=== PATIENT | female | born 1960 | race Caucasian/White ===

== ENCOUNTER 2022-07-16 14:14 | Observation (INO) ==
[2022-07-16] MEDS ORDERED: ONDANSETRON INJ 2 MG/ML 2 ML VIAL IV STA (14:41)
[2022-07-16] MEDS ORDERED: SODIUM CHLORIDE 0.9% 1000ML 1,000 ML IV ONE ×2 (14:41→16:13)
[2022-07-16] MEDS ORDERED: ACETAMINOPHEN 1,000 MG/100 ML VIAL IV STA (14:43)
[2022-07-16] MEDS ORDERED: OPTIRAY 320 500ml IV ONE (14:49)
--- NOTE | 2022-07-16 14:49 | Emergency Department Note ---
Impression & Plan Acute confusion, Leukocytosis, Amnesia, Vomiting and diarrhea ED Provider Note NAME: JOAQUIN PINTO AGE: 62 SEX: F : 1960 ARRIVES VIA: Walk-In INFORMANT: [Patient][] ED PROVIDER(S): [Mando Blackmon MD] Patient first seen by me at 1655 CHIEF COMPLAINT: Confusion HISTORY OF PRESENT ILLNESS: The patient is a 62-year-old female who woke up this morning at around 8 AM, 6.5 hours ago. She had several bouts of vomiting and diarrhea. She went back to bed but the exact time is unclear. At 1155, around noon time, 2 hours and 30 minutes ago, the patient awoke and was confused. She kept asking the same questions over and over again, she did not know what had happened this morning, she did not have any speech slur, no extremity weakness, no difficulty with gait. Her memory did not really seem to be improving and she was brought for evaluation by her . Patient complains of a mild headache. No abdominal pain, no chest pain. She does admit that her memory is an issue today. PMHx/PSHx: See Below SOCIAL HISTORY: See Below. PHYSICAL EXAM: GENERAL: Patient is in no acute distress. HEENT: No acute trauma, normocephalic atraumatic, mucous membranes moist, no nasal congestion. Pupils equal and reactive to light. NECK: No stridor, no adenopathy, no meningismus, trachea is midline. LUNGS: Clear to auscultation bilaterally, no wheeze, no rhonchi, breath sounds equal. HEART: Without murmurs gallops or rubs, regular rate and rhythm. ABDOMEN: Soft, nontender, bowel sounds positive, no peritonitis. EXTREMITIES: No cyanosis or edema, full range of motion of all the joints without pain or difficulty, no signs for acute trauma. NEUROLOGIC: The patient knows her name and that this is Lino Quick. She did not know the year or day, but, she did know the month. There was no facial droop or extremity drift, no cerebellar dysfunction. No speech slur. SKIN: No rash, no jaundice, no diaphoresis. DIFFERENTIAL DIAGNOSIS: Stroke, transient global amnesia, dehydration, electrolyte imbalance, UTI, viral illness, among others. EMERGENCY DEPARTMENT COURSE/PROCEDURES: Prior/Outside records reviewed: None. ECG per my interpretation: Indication was confusion. The ECG shows a normal sinus rhythm with a rate of 83. There is no ST elevation, no PVCs. The QTc is 425. Continuous Cardiac Monitoring per my interpretation: An order was placed for continuous cardiac monitoring. The monitor shows a rate of 93 with normal sinus rhythm. Critical Care Note: I have personally spent 41 minutes of critical care time in the direct management of this patient. This includes bedside care, interpretation of diagnostic studies, and testing, discussion with consultants, patient, and family members, and other required patient management activities. This 41 minutes is in excess of all separately billable procedures. MEDICAL DECISION MAKING: There is a mild leukocytosis which would be consistent with infection or the stress of her current presentation. The hemoglobin was high at 17 consistent possibly with some dehydration. There is a normal platelet count. No coagulopathy. No renal failure or significant electrolyte abnormality. Lactic acid level is not elevated making sepsis less likely. No concerning liver enzyme elevation. ECG shows a normal sinus rhythm, no ischemia. Cardiac enzyme testing x1 is not consistent with acute cardiac injury. Urinalysis shows some dehydration, no infection. Urine tox was negative. COVID, influenza and RSV test were negative. Brain CT showed no acute bleed or mass effect. CT angio of the head and neck were unremarkable for stenosis or clot. Chest x-ray per my review does not show mediastinal widening, pneumonia or pneumothorax. On exam, the patient did have some amnesia and some difficulty with memory. No focal motor findings, no speech slur. The patient received IV saline, 2 L. She received IV Zofran for nausea, IV Tylenol for her headache. Given her presentation, a stroke alert was called. Patient was seen by the [place] stroke neurologist, TNK was not felt indicated given the exam findings and complaints. The patient does seem to be improved compared to earlier, her feels that she seems less confused. Admission/further work-up is warranted. I talked to the patient, I talked to case management, the on-call hospitalist was consulted. Transient global amnesia is a consideration for her presentation, subtle stroke not seen on CT is a consideration. Hospitalization is indicated. DISPOSITION: Patient presentation and findings warrant a hospital stay and further work-up. Past Med/Surg History Medical History Depression Dyslipidemia Hypertension Mild mitral regurgitation Echo 05/27/19 Mild tricuspid regurgitation Echo 05/27/19 Overweight Prediabetes Surgical History S/P laparoscopic procedure Family History Family/Other Breast cancer cousin Father Diabetes Mother Diabetes Hypertension Brother Diabetes Brother Diabetes Sister Breast cancer Prediabetes Denies family history of Ovarian cancer Prostate cancer Myocardial infarction Colorectal cancer Social History Smoking Status: Never smoker Second Hand Exposure: No; Hx Alcohol Use: No Hx Substance Use: No Preferred Language: [place] Communication Ability: Effective Visual Impairment: No Limitations Hearing Ability: Normal Hand Braille Transcriber Required: No Beliefs That Will Affect Care: None marital status: Current Living Situation: Spouse current occupational status: employed 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 How many Children do You have: 3 Feels Safe at Home: Yes Childhood Exposure to Second-Hand Smoke: No Diet Comment: regular caffeine: Yes (Tea 1 cup per day.) during the past year weight has: remained stable Dental Care, Regularly: Yes Physical Activity Frequency: Daily Seatbelt Use: always Sunscreen Use: Yes (sometimes) Allergies Allergies Allergy/AdvReac Type Severity Reaction Status Date / Time Penicillins Allergy Unknown CHILDHOOD Verified 07/16/22 15:04 ALLERGY--CAN'T REMEMBER Home Meds Home Medications Medication Instructions Recorded Confirmed chromium aa hjexvdb-cvuvlbtwf-olrf 1 tab PO DAILY 05/24/19 07/16/22 200 mcg-5 mg-25 mg tablet glucosamine sulf dipot 1 cap PO DAILY 05/24/19 07/16/22 chlr,msm,chond 550 mg-C 30 mg-alfonso 1 mg capsule (Glucosamine Chondroitin) lactobacillus combination no.4 3 0 mmu cells PO DAILY 05/24/19 07/16/22 billion cell capsule (Probiotic) multivitamin 1 tab PO DAILY 05/24/19 07/16/22 omega 7-llj-duy-fish oil 1,000 mg 1 cap PO DAILY 05/24/19 07/16/22 (120 mg-180 mg) capsule (Fish Oil) cholecalciferol (vitamin D3) 10 1,000 units PO DAILY 05/26/19 07/16/22 mcg (400 unit) tablet (Vitamin D3) potassium gluconate 595 mg (99 mg) 595 mg PO DAILY 05/26/19 07/16/22 tablet psyllium husk 3.4 gram/5.4 gram 1 tbsp PO DAILY 05/05/20 07/16/22 oral powder (Metamucil) calcium carbonate 600 mg-vitamin 1 cap PO DAILY 07/16/22 07/16/22 D3 10 mcg (400 unit) capsule coQ10 (ubiquinol) 200 mg capsule 200 mg PO DAILY 07/16/22 07/16/22 Previous Rx's Medication Instructions Recorded sertraline 50 mg tablet 50 mg PO DAILY #90 tabs 08/29/21 rosuvastatin 10 mg tablet 10 mg PO DAILY #90 tabs 12/14/21 lisinopril 10 mg tablet 10 mg PO DAILY #90 tabs 06/13/22 metformin 500 mg tablet,extended 500 mg PO DAILY #90 tabs 07/16/22 release 24 hr Results & Data (ED) Vital Signs Vital Signs - 24 hr 07/16/22 14:21 07/16/22 14:40 07/16/22 14:40 Temperature 36.2 C L Temperature Source Temporal Artery Scan Pulse Rate 93 H 82 84 Pulse Rate from SpO2 Sensor Pulse Rhythm Regular Pulse Strength Normal Respiratory Rate 20 16 Respiratory Effort / Characteristics Non-Labored Spontaneous Respiratory Depth Normal Respiratory Pattern Regular Blood Pressure 175/84 H Blood Pressure Mean 114 Blood Pressure Position Sitting Pulse Oximetry 97 Oxygen Delivery Method Room Air Sepsis Recent Fever Within 48 Hours No Sepsis New/Unexplained Change in Mental Status No Sepsis Action Taken by Nursing No Action Required 07/16/22 14:41 07/16/22 14:41 07/16/22 14:54 Temperature Temperature Source Pulse Rate 80 Pulse Rate from SpO2 Sensor 81 Pulse Rhythm Pulse Strength Respiratory Rate 13 Respiratory Effort / Characteristics Respiratory Depth Respiratory Pattern Blood Pressure 164/83 H 156/76 H Blood Pressure Mean 110 102 Blood Pressure Position Pulse Oximetry 95 Oxygen Delivery Method Sepsis Recent Fever Within 48 Hours Sepsis New/Unexplained Change in Mental Status Sepsis Action Taken by Nursing 07/16/22 14:54 07/16/22 15:00 07/16/22 15:00 Temperature Temperature Source Pulse Rate 95 H 87 Pulse Rate from SpO2 Sensor 95 H 87 Pulse Rhythm Pulse Strength Respiratory Rate 16 14 Respiratory Effort / Characteristics Respiratory Depth Respiratory Pattern Blood Pressure 157/80 H Blood Pressure Mean 105 Blood Pressure Position Pulse Oximetry 96 97 Oxygen Delivery Method Sepsis Recent Fever Within 48 Hours Sepsis New/Unexplained Change in Mental Status Sepsis Action Taken by Nursing 07/16/22 15:30 07/16/22 15:30 07/16/22 16:00 Temperature Temperature Source Pulse Rate 78 Pulse Rate from SpO2 Sensor 78 Pulse Rhythm Pulse Strength Respiratory Rate 16 Respiratory Effort / Characteristics Respiratory Depth Respiratory Pattern Blood Pressure 151/72 H 131/81 Blood Pressure Mean 98 97 Blood Pressure Position Pulse Oximetry 97 Oxygen Delivery Method Sepsis Recent Fever Within 48 Hours Sepsis New/Unexplained Change in Mental Status Sepsis Action Taken by Nursing 07/16/22 16:00 Temperature Temperature Source Pulse Rate 77 Pulse Rate from SpO2 Sensor 77 Pulse Rhythm Pulse Strength Respiratory Rate 18 Respiratory Effort / Characteristics Respiratory Depth Respiratory Pattern Blood Pressure Blood Pressure Mean Blood Pressure Position Pulse Oximetry 97 Oxygen Delivery Method Sepsis Recent Fever Within 48 Hours Sepsis New/Unexplained Change in Mental Status Sepsis Action Taken by Long-Term Medications Current Medication List: was personally reviewed by me Laboratory Data Attestation: I reviewed the patient's lab results. 07/16/22 14:38 07/16/22 14:38 Lab Results 07/16/22 07/16/22 07/16/22 Range/Units 14:26 14:38 14:38 WBC 14.89 H (4.8-10.8) K/ul RBC 5.60 H (4.20-5.40) M/uL Hgb 17.2 H (12.0-16.0) g/dl Hct 51.6 H (37.0-47.0) % MCV 92.1 (80.0-100.0) fL MCH 30.7 (25.0-34.0) pg MCHC 33.3 (32.0-36.0) g/dL RDW Std Deviation 44.9 (36.4-46.3) fL RDW Coeff of Rory 13.2 (11.5-14.5) % Plt Count 232 (130-400) K/uL MPV 11.4 (9.4-12.4) fL Immature Gran % (Auto) 0.5 % Neut % (Auto) 92.8 % Lymph % (Auto) 3.3 % [place]pine % (Auto) 3.0 % Eos % (Auto) 0.1 % Baso % (Auto) 0.3 % Neut # (Auto) 13.84 H (1.40-6.50) K/uL Lymph # (Auto) 0.49 L (1.2-3.4) K/uL Alpine # (Auto) 0.44 (0.11-0.59) K/uL Eos # (Auto) 0.01 (0-0.50) K/uL Baso # (Auto) 0.04 (0-0.2) K/uL Immature Gran # (Auto) 0.07 (0.01-0.20) K/uL Toxic Vacuolation 1+ PT 10.5 (9.0-12.0) Seconds INR 1.0 (0.9-1.1) APTT 22.8 (21.0-31.0) Seconds PTT Ratio 0.8 Sodium (136-145) mmol/L Potassium (3.5-5.1) mmol/L Chloride (98-107) mmol/L Carbon Dioxide (21-32) mmol/L Anion Gap (3-11) BUN (6-23) mg/dl Creatinine (0.6-1.2) mg/dl Est Cr Clr Drug Dosing ml/min Est GFR ( Amer) ml/min Est GFR (Non-Af Amer) ml/min BUN/Creatinine Ratio (10-20) Glucose (70-99(Fasting)) mg/dl POC Glucose 134 H (70-99) mg/dl Lactate (0.4-2.0) mmol/L Calcium (8.5-10.1) mg/dl Magnesium (1.7-2.4) mg/dl Total Bilirubin (0.2-1.0) mg/dl AST (13-39) U/L ALT (7-52) U/L Alkaline Phosphatase (34-104) U/L Troponin I High Sens (0-14) pg/ml Total Protein (6.0-8.3) gm/dl Albumin (3.4-5.0) gm/dl Globulin (2.5-4.0) gm/dl Albumin/Globulin Ratio (0.9-2) Urine Color Urine Appearance (Clear) Urine pH (4.5-7.5) Ur Specific [place] (1.000-1.030) Urine Protein (Negative) Urine Glucose (UA) (Negative) Urine Ketones (Negative) Urine Blood (Negative) Urine Nitrite (Negative) Urine Bilirubin (Negative) Urine Urobilinogen (Negative) Ur Leukocyte Esterase (Negative) Urine Opiates Screen (Neg) Ur Methadone, Qual (Neg) Urine Barbiturates (Neg) Ur Phencyclidine (PCP) (Neg) U Amphetamin/Meth Scrn (Neg) MDMA (Ecstasy) Screen (Neg) U Benzodiazepines Scrn (Neg) Ur Cocaine Metabolite (Neg) U Marijuana (THC) Screen (Neg) SARS-CoV-2 (PCR) (Negative) Influenza Type A (PCR) (Neg) Influenza Type B (PCR) (Neg) RSV (RT-PCR) (Neg) 07/16/22 07/16/22 07/16/22 Range/Units 14:38 15:42 15:50 WBC (4.8-10.8) K/ul RBC (4.20-5.40) M/uL Hgb (12.0-16.0) g/dl Hct (37.0-47.0) % MCV (80.0-100.0) fL MCH (25.0-34.0) pg MCHC (32.0-36.0) g/dL RDW Std Deviation (36.4-46.3) fL RDW Coeff of Rory (11.5-14.5) % Plt Count (130-400) K/uL MPV (9.4-12.4) fL Immature Gran % (Auto) % Neut % (Auto) % Lymph % (Auto) % Alpine % (Auto) % Eos % (Auto) % Baso % (Auto) % Neut # (Auto) (1.40-6.50) K/uL Lymph # (Auto) (1.2-3.4) K/uL Alpine # (Auto) (0.11-0.59) K/uL Eos # (Auto) (0-0.50) K/uL Baso # (Auto) (0-0.2) K/uL Immature Gran # (Auto) (0.01-0.20) K/uL Toxic Vacuolation PT (9.0-12.0) Seconds INR (0.9-1.1) APTT (21.0-31.0) Seconds PTT Ratio Sodium 142 (136-145) mmol/L Potassium 4.1 (3.5-5.1) mmol/L Chloride 108 H (98-107) mmol/L Carbon Dioxide 26 (21-32) mmol/L Anion Gap 8 (3-11) BUN 21 (6-23) mg/dl Creatinine 0.86 (0.6-1.2) mg/dl Est Cr Clr Drug Dosing 69.0 ml/min Est GFR ( Amer) 83.3 ml/min Est GFR (Non-Af Amer) 71.9 ml/min BUN/Creatinine Ratio 24.4 H (10-20) Glucose 143 H (70-99(Fasting)) mg/dl POC Glucose (70-99) mg/dl Lactate (0.4-2.0) mmol/L Calcium 9.6 (8.5-10.1) mg/dl Magnesium 1.8 (1.7-2.4) mg/dl Total Bilirubin 1.1 H (0.2-1.0) mg/dl AST 22 (13-39) U/L ALT 31 (7-52) U/L Alkaline Phosphatase 87 (34-104) U/L Troponin I High Sens 6.2 (0-14) pg/ml Total Protein 8.0 (6.0-8.3) gm/dl Albumin 4.9 (3.4-5.0) gm/dl Globulin 3.1 (2.5-4.0) gm/dl Albumin/Globulin Ratio 1.6 (0.9-2) Urine Color Yellow Urine Appearance Clear (Clear) Urine pH 5.0 (4.5-7.5) Ur Specific [place] > 1.045 H (1.000-1.030) Urine Protein Negative (Negative) Urine Glucose (UA) Negative (Negative) Urine Ketones Trace H (Negative) Urine Blood Negative (Negative) Urine Nitrite Negative (Negative) Urine Bilirubin Negative (Negative) Urine Urobilinogen Negative (Negative) Ur Leukocyte Esterase Negative (Negative) Urine Opiates Screen (Neg) Ur Methadone, Qual (Neg) Urine Barbiturates (Neg) Ur Phencyclidine (PCP) (Neg) U Amphetamin/Meth Scrn (Neg) MDMA (Ecstasy) Screen (Neg) U Benzodiazepines Scrn (Neg) Ur Cocaine Metabolite (Neg) U Marijuana (THC) Screen (Neg) SARS-CoV-2 (PCR) NEGATIVE (Negative) Influenza Type A (PCR) Negative (Neg) Influenza Type B (PCR) Negative (Neg) RSV (RT-PCR) Negative (Neg) 07/16/22 07/16/22 Range/Units 15:50 16:49 WBC (4.8-10.8) K/ul RBC (4.20-5.40) M/uL Hgb (12.0-16.0) g/dl Hct (37.0-47.0) % MCV (80.0-100.0) fL MCH (25.0-34.0) pg MCHC (32.0-36.0) g/dL RDW Std Deviation (36.4-46.3) fL RDW Coeff of Rory (11.5-14.5) % Plt Count (130-400) K/uL MPV (9.4-12.4) fL Immature Gran % (Auto) % Neut % (Auto) % Lymph % (Auto) % [place] % (Auto) % Eos % (Auto) % Baso % (Auto) % Neut # (Auto) (1.40-6.50) K/uL Lymph # (Auto) (1.2-3.4) K/uL [place] # (Auto) (0.11-0.59) K/uL Eos # (Auto) (0-0.50) K/uL Baso # (Auto) (0-0.2) K/uL Immature Gran # (Auto) (0.01-0.20) K/uL Toxic Vacuolation PT (9.0-12.0) Seconds INR (0.9-1.1) APTT (21.0-31.0) Seconds PTT Ratio Sodium (136-145) mmol/L Potassium (3.5-5.1) mmol/L Chloride (98-107) mmol/L Carbon Dioxide (21-32) mmol/L Anion Gap (3-11) BUN (6-23) mg/dl Creatinine (0.6-1.2) mg/dl Est Cr Clr Drug Dosing ml/min Est GFR ( Amer) ml/min Est GFR (Non-Af Amer) ml/min BUN/Creatinine Ratio (10-20) Glucose (70-99(Fasting)) mg/dl POC Glucose (70-99) mg/dl Lactate 1.6 (0.4-2.0) mmol/L Calcium (8.5-10.1) mg/dl Magnesium (1.7-2.4) mg/dl Total Bilirubin (0.2-1.0) mg/dl AST (13-39) U/L ALT (7-52) U/L Alkaline Phosphatase (34-104) U/L Troponin I High Sens (0-14) pg/ml Total Protein (6.0-8.3) gm/dl Albumin (3.4-5.0) gm/dl Globulin (2.5-4.0) gm/dl Albumin/Globulin Ratio (0.9-2) Urine Color Urine Appearance (Clear) Urine pH (4.5-7.5) Ur Specific [place] (1.000-1.030) Urine Protein (Negative) Urine Glucose (UA) (Negative) Urine Ketones (Negative) Urine Blood (Negative) Urine Nitrite (Negative) Urine Bilirubin (Negative) Urine Urobilinogen (Negative) Ur Leukocyte Esterase (Negative) Urine Opiates Screen Neg (Neg) Ur Methadone, Qual Neg (Neg) Urine Barbiturates Neg (Neg) Ur Phencyclidine (PCP) Neg (Neg) U Amphetamin/Meth Scrn Neg (Neg) MDMA (Ecstasy) Screen Neg (Neg) U Benzodiazepines Scrn Neg (Neg) Ur Cocaine Metabolite Neg (Neg) U Marijuana (THC) Screen Neg (Neg) SARS-CoV-2 (PCR) (Negative) Influenza Type A (PCR) (Neg) Influenza Type B (PCR) (Neg) RSV (RT-PCR) (Neg) Administered Medications Sodium Chloride (Nss 1000ml) 1,000 mls @ 999 mls/hr IV .Q1H1M ONE Stop: 07/16/22 17:13 Last Admin: 07/16/22 16:44 Dose: 999 mls/hr Documented By: VIOLET Discontinued Medications Sodium Chloride (Nss 1000ml) 1,000 mls @ 999 mls/hr IV .Q1H1M ONE Stop: 07/16/22 15:41 Last Infusion: 07/16/22 17:03 Dose: 0 mls/hr Documented By: Admin: 07/16/22 14:54 Dose: 999 mls/hr Documented By: VIOLET Acetaminophen (Ofirmev) 1,000 mg in 100 mls @ 400 mls/hr IV NOW STA Stop: 07/16/22 14:57 Last Infusion: 07/16/22 15:58 Dose: 0 mls/hr Documented By: Admin: 07/16/22 14:53 Dose: 400 mls/hr Documented By: VIOLET Ioversol (Optiray 320 500ml) 108 ml IV ONCE ONE Stop: 07/16/22 14:50 Last Admin: 07/16/22 14:49 Dose: 108 ml Documented By: DENILSON Ondansetron HCl (Ondansetron Inj 2 Mg/Ml 2 Ml Vial) 4 mg IV NOW STA Stop: 07/16/22 14:42 Last Admin: 07/16/22 14:53 Dose: 4 mg Documented By: VIOLET Imaging Data Radiologist's Impression: Head CT 07/16/22 14:[address] OF THE BRAIN; CT ANGIOGRAM OF THE BRAIN; CT ANGIOGRAM OF THE NECK CLINICAL HISTORY: Strokelike symptoms. Neurological deficit. COMPARISON STUDY: CT of the brain dated 05/24/2019. TECHNIQUE: Unenhanced axial CT scan of the brain is performed. Subsequently, following the IV administration of 108 of Optiray 320, CT angiogram of the head and neck was performed from the aortic arch to the vertex. Images are reviewed in the axial, sagittal, and coronal planes. 3-D MIPS images are created and assessed. IV contrast was administered without complication. All measurements were calculated based on NASCET criteria. A dose lowering technique was utilized adhering to the principles of ALARA. CT DOSE: 1045.39 mGy.cm FINDINGS: Brain parenchyma: The brain parenchyma is normal in appearance. There is no hemorrhage, mass effect, or evidence of acute territorial ischemia by CT criteria. There is no evidence of enhancing mass lesion on the angiogram phase images. The ventricles, sulci, and cisterns are normal in configuration. Oliveros- white matter differentiation is preserved. No extra-axial fluid collection is seen. Thoracic aorta: Visualized portions of the thoracic aorta are normal in caliber. The aortic arch demonstrates bovine variant anatomy. Right carotid arterial system: The right common carotid artery is widely patent, as are the right internal and external carotid arteries. Left carotid arterial system: The left common carotid artery is widely patent, as are the left internal and external carotid arteries. Vertebral arteries: The vertebral arteries are widely patent bilaterally and codominant Subclavian arteries: Widely patent bilaterally. Intracranial vasculature: There is atherosclerotic calcification of the cavernous carotid arteries. The internal carotid arteries are patent at the skull base, as are the anterior and middle cerebral arteries bilaterally. The vertebrobasilar system and posterior cerebral arteries are widely patent. The vertebral arteries are codominant.. There is no aneurysm, high-grade stenosis, or focal vessel cut off seen throughout the intracranial circulation. Jugular veins: Patent bilaterally. Dural sinuses: Patent. Lung apices: Partially visualized upper lobe lung parenchyma appears clear. Soft tissues: The visualized pharyngeal soft tissues are normal in appearance noting angiographic phase technique. The oropharyngeal airway appears widely patent. A 1.6 cm enhancing nodule is seen in the left lobe of the thyroid. The salivary glands are normal in appearance. No cervical lymphadenopathy is seen. Skeletal structures: The skeletal structures are osteopenic. The calvarium appears intact. The cervical spine is maintained noting multilevel spondylosis. No lytic or blastic lesion is seen. Orbits: The bony orbits are intact. Orbital contents are normal as visualized. Sinuses and mastoids: The paranasal sinuses are clear. The mastoid air cells are well pneumatized. IMPRESSION: 1. There is no hemorrhage, mass effect, or evidence of acute territorial ischemia by CT criteria. 2. Unremarkable CT angiogram of the brain. 3. Unremarkable CT angiogram of the neck. 4. Left lobe thyroid nodule. Nonemergent thyroid ultrasound is recommended in follow-up. ACT 112: Negative or not required by law. Electronically signed by: Mando Braxton M.D. 07/16/2022 3:08 PM Head CTA 07/16/22 14:[address] OF THE BRAIN; CT ANGIOGRAM OF THE BRAIN; CT ANGIOGRAM OF THE NECK CLINICAL HISTORY: Strokelike symptoms. Neurological deficit. COMPARISON STUDY: CT of the brain dated 05/24/2019. TECHNIQUE: Unenhanced axial CT scan of the brain is performed. Subsequently, following the IV administration of 108 of Optiray 320, CT angiogram of the head and neck was performed from the aortic arch to the vertex. Images are reviewed in the axial, sagittal, and coronal planes. 3-D MIPS images are created and assessed. IV contrast was administered without complication. All measurements were calculated based on NASCET criteria. A dose lowering technique was utilized adhering to the principles of ALARA. CT DOSE: 1045.39 mGy.cm FINDINGS: Brain parenchyma: The brain parenchyma is normal in appearance. There is no hemorrhage, mass effect, or evidence of acute territorial ischemia by CT criteria. There is no evidence of enhancing mass lesion on the angiogram phase images. The ventricles, sulci, and cisterns are normal in configuration. Oliveros- white matter differentiation is preserved. No extra-axial fluid collection is seen. Thoracic aorta: Visualized portions of the thoracic aorta are normal in caliber. The aortic arch demonstrates bovine variant anatomy. Right carotid arterial system: The right common carotid artery is widely patent, as are the right internal and external carotid arteries. Left carotid arterial system: The left common carotid artery is widely patent, as are the left internal and external carotid arteries. Vertebral arteries: The vertebral arteries are widely patent bilaterally and codominant Subclavian arteries: Widely patent bilaterally. Intracranial vasculature: There is atherosclerotic calcification of the cavernous carotid arteries. The internal carotid arteries are patent at the [facility] base, as are the anterior and middle cerebral arteries bilaterally. The vertebrobasilar system and posterior cerebral arteries are widely patent. The vertebral arteries are codominant.. There is no aneurysm, high-grade stenosis, or focal vessel cut off seen throughout the intracranial circulation. Jugular veins: Patent bilaterally. Dural sinuses: Patent. Lung apices: Partially visualized upper lobe lung parenchyma appears clear. Soft tissues: The visualized pharyngeal soft tissues are normal in appearance noting angiographic phase technique. The oropharyngeal airway appears widely patent. A 1.6 cm enhancing nodule is seen in the left lobe of the thyroid. The salivary glands are normal in appearance. No cervical lymphadenopathy is seen. Skeletal structures: The skeletal structures are osteopenic. The calvarium appears intact. The cervical spine is maintained noting multilevel spondylosis. No lytic or blastic lesion is seen. Orbits: The bony orbits are intact. Orbital contents are normal as visualized. Sinuses and mastoids: The paranasal sinuses are clear. The mastoid air cells are well pneumatized. IMPRESSION: 1. There is no hemorrhage, mass effect, or evidence of acute territorial ischemia by CT criteria. 2. Unremarkable CT angiogram of the brain. 3. Unremarkable CT angiogram of the neck. 4. Left lobe thyroid nodule. Nonemergent thyroid ultrasound is recommended in follow-up. ACT 112: Negative or not required by law. Electronically signed by: Mando Braxton M.D. 07/16/2022 3:08 PM Neck CTA 07/16/22 14:[address] OF THE BRAIN; CT ANGIOGRAM OF THE BRAIN; CT ANGIOGRAM OF THE NECK CLINICAL HISTORY: Strokelike symptoms. Neurological deficit. COMPARISON STUDY: CT of the brain dated 05/24/2019. TECHNIQUE: Unenhanced axial CT scan of the brain is performed. Subsequently, following the IV administration of 108 of Optiray 320, CT angiogram of the head and neck was performed from the aortic arch to the vertex. Images are reviewed in the axial, sagittal, and coronal planes. 3-D MIPS images are created and assessed. IV contrast was administered without complication. All measurements were calculated based on NASCET criteria. A dose lowering technique was utilized adhering to the principles of ALARA. CT DOSE: 1045.39 mGy.cm FINDINGS: Brain parenchyma: The brain parenchyma is normal in appearance. There is no h emorrhage, mass effect, or evidence of acute territorial ischemia by CT criteria. There is no evidence of enhancing mass lesion on the angiogram phase images. The ventricles, sulci, and cisterns are normal in configuration. Oliveros- white matter differentiation is preserved. No extra-axial fluid collection is seen. Thoracic aorta: Visualized portions of the thoracic aorta are normal in caliber. The aortic arch demonstrates bovine variant anatomy. Right carotid arterial system: The right common carotid artery is widely patent, as are the right internal and external carotid arteries. Left carotid arterial system: The left common carotid artery is widely patent, as are the left internal and external carotid arteries. Vertebral arteries: The vertebral arteries are widely patent bilaterally and codominant Subclavian arteries: Widely patent bilaterally. Intracranial vasculature: There is atherosclerotic calcification of the cavernous carotid arteries. The internal carotid arteries are patent at the skull base, as are the anterior and middle cerebral arteries bilaterally. The vertebrobasilar system and posterior cerebral arteries are widely patent. The vertebral arteries are codominant.. There is no aneurysm, high-grade stenosis, or focal vessel cut off seen throughout the intracranial circulation. Jugular veins: Patent bilaterally. Dural sinuses: Patent. Lung apices: Partially visualized upper lobe lung parenchyma appears clear. Soft tissues: The visualized pharyngeal soft tissues are normal in appearance noting angiographic phase technique. The oropharyngeal airway appears widely patent. A 1.6 cm enhancing nodule is seen in the left lobe of the thyroid. The salivary glands are normal in appearance. No cervical lymphadenopathy is seen. Skeletal structures: The skeletal structures are osteopenic. The calvarium appears intact. The cervical spine is maintained noting multilevel spondylosis. No lytic or blastic lesion is seen. Orbits: The bony orbits are intact. Orbital contents are normal as visualized. Sinuses and mastoids: The paranasal sinuses are clear. The mastoid air cells are well pneumatized. IMPRESSION: 1. There is no hemorrhage, mass effect, or evidence of acute territorial ischemia by CT criteria. 2. Unremarkable CT angiogram of the brain. 3. Unremarkable CT angiogram of the neck. 4. Left lobe thyroid nodule. Nonemergent thyroid ultrasound is recommended in follow-up. ACT 112: Negative or not required by law. Electronically signed by: Mando Braxton M.D. 07/16/2022 3:08 PM Chest X-Ray 07/16/22 16:18 XR chest 1V portable CLINICAL HISTORY: confusion ?PNA COMPARISON STUDY: Chest radiograph May 24, 2019. FINDINGS: Lung volumes are normal. Lungs are clear. There is no pneumothorax or pleural effusion. Cardiac size is normal. Mediastinal contours are normal. There is no evidence for pulmonary edema. IMPRESSION: No acute cardiopulmonary findings. ACT 112: Negative or not required by law. Electronically signed by: Matt Hargrove M.D. 07/16/2022 4:38 PM Discharge Plan Visit Data Chief Complaint: Confusion Stated Complaint: VOMITING,DIARRHEA,CONFUSION,HEADACHE ED Provider: Mando Blackmon Discharge Problem: Acute confusion, Leukocytosis, Amnesia, Vomiting and diarrhea Patient Disposition: Admitted As Inpatient Condition: Fair Forms Stand Alone Forms: My [facility] Prescriptions Prescriptions: No Action rosuvastatin 10 mg tablet 10 mg PO DAILY Qty: 90 3RF lisinopril 10 mg tablet 10 mg PO DAILY Qty: 90 1RF metformin 500 mg tablet extended release 24 hr 500 mg PO DAILY Qty: 90 1RF sertraline 50 mg tablet 50 mg PO DAILY Qty: 90 3RF Metamucil 3.4 gram/5.4 gram powder 1 tbsp PO DAILY Rx Instructions: mix into at least 8 oz of water or juice before administering multivitamin Tablet 1 tab PO DAILY omega 6-yev-qzf-fish oil [Fish Oil] 1,000 mg (120 mg-180 mg) Capsule 1 cap PO DAILY Patient Comments: unknown strength (05/24/19) chromium aa eey-jedszgiwy-azsk 200-5-25 mcg-mg-mg Tablet 1 tab PO DAILY Patient Comments: unknown strength (05/24/19) Probiotic 3 billion cell Capsule 0 mmu cells PO DAILY Patient Comments: unknown strength (05/24/19) Glucosamine Chondroitin 550-30-1 mg Capsule 1 cap PO DAILY Patient Comments: unknown strength (05/24/19) potassium gluconate 595 mg (99 mg) tablet 595 mg PO DAILY Patient Comments: unknown strength (05/24/19) cholecalciferol (vitamin D3) [Vitamin D3] 10 mcg (400 unit) tablet 1,000 units PO DAILY Patient Comments: unknown strength (05/24/19) calcium carbonate-vitamin D3 [Calcium 600 with Vitamin D3] 600 mg-10 mcg (400 unit) Capsule 1 cap PO DAILY coQ10 (ubiquinol) 200 mg Capsule 200 mg PO DAILY Referrals Referrals: Anum Rees DO [Primary Care Provider] -
[2022-07-16 14:56] LABS: Hematocrit (blood only) 51.6 % (37.0-47.0); Hemoglobin 17.2 g/dl (12.0-16.0); Mean Corpuscular Hemoglobin 30.7 pg (25.0-34.0); Mean Corpuscular Hgb Conc 33.3 g/dL (32.0-36.0); Mean Corpuscular Volume 92.1 fL (80.0-100.0); Mean Platelet Volume 11.4 fL (9.4-12.4); Platelet Count 232 K/uL (130-400); RDW Coefficient of Variation 13.2 % (11.5-14.5); RDW Standard Deviation 44.9 fL (36.4-46.3); White Blood Count 14.89 K/ul (4.8-10.8)
[2022-07-16 15:06] LABS: Partial Thromboplastin Ratio 0.8; Partial Thromboplastin Time 22.8 Seconds (21.0-31.0); Prothrombin Time 10.5 Seconds (9.0-12.0)
--- NOTE | 2022-07-16 15:10 | CT Scan Report ---
UNENHANCED CT OF THE BRAIN; CT ANGIOGRAM OF THE BRAIN; CT ANGIOGRAM OF THE NECK CLINICAL HISTORY: Strokelike symptoms. Neurological deficit. COMPARISON STUDY: CT of the brain dated 05/24/2019. TECHNIQUE: Unenhanced axial CT scan of the brain is performed. Subsequently, following the IV adminis tration of 108 of Optiray 320, CT angiogram of the head and neck was performed from the aortic arch t o the vertex. Images are reviewed in the axial, sagittal, and coronal planes. 3-D MIPS images are cre ated and assessed. IV contrast was administered without complication. All measurements were calculate d based on NASCET criteria. A dose lowering technique was utilized adhering to the principles of ALA RA. CT DOSE: 1045.39 mGy.cm FINDINGS: Brain parenchyma: The brain parenchyma is normal in appearance. There is no hemorrhage, mass effect, or evidence of acute territorial ischemia by CT criteria. There is no evidence of enhancing mass lesi on on the angiogram phase images. The ventricles, sulci, and cisterns are normal in configuration. Gr ay-white matter differentiation is preserved. No extra-axial fluid collection is seen. Thoracic aorta: Visualized portions of the thoracic aorta are normal in caliber. The aortic arch demo nstrates bovine variant anatomy. Right carotid arterial system: The right common carotid artery is widely patent, as are the right int ernal and external carotid arteries. Left carotid arterial system: The left common carotid artery is widely patent, as are the left international student counselor al and external carotid arteries. Vertebral arteries: The vertebral arteries are widely patent bilaterally and codominant Subclavian arteries: Widely patent bilaterally. Intracranial vasculature: There is atherosclerotic calcification of the cavernous carotid arteries. T he internal carotid arteries are patent at the skull base, as are the anterior and middle cerebral ar teries bilaterally. The vertebrobasilar system and posterior cerebral arteries are widely patent. The vertebral arteries are codominant.. There is no aneurysm, high-grade stenosis, or focal vessel cut o ff seen throughout the intracranial circulation. Jugular veins: Patent bilaterally. Dural sinuses: Patent. Lung apices: Partially visualized upper lobe lung parenchyma appears clear. Soft tissues: The visualized pharyngeal soft tissues are normal in appearance noting angiographic pha se technique. The oropharyngeal airway appears widely patent. A 1.6 cm enhancing nodule is seen in th e left lobe of the thyroid. The salivary glands are normal in appearance. No cervical lymphadenopathy is seen. Skeletal structures: The skeletal structures are osteopenic. The calvarium appears intact. The cervic al spine is maintained noting multilevel spondylosis. No lytic or blastic lesion is seen. Orbits: The bony orbits are intact. Orbital contents are normal as visualized. Sinuses and mastoids: The paranasal sinuses are clear. The mastoid air cells are well pneumatized. IMPRESSION: 1. There is no hemorrhage, mass effect, or evidence of acute territorial ischemia by CT criteria. 2. Unremarkable CT angiogram of the brain. 3. Unremarkable CT angiogram of the neck. 4. Left lobe thyroid nodule. Nonemergent thyroid ultrasound is recommended in follow-up. ACT 112: Negative or not required by law. Electronically signed by: Mando Braxton M.D. 07/16/2022 3:08 PM
[2022-07-16 15:30] LABS: Basophils # (auto) 0.04 K/uL (0-0.2); Basophils % (auto) 0.3 %; Eosinophils # (auto) 0.01 K/uL (0-0.50); Eosinophils % (auto) 0.1 %; Immature Granulocytes # (auto) 0.07 K/uL (0.01-0.20); Immature Granulocytes % (auto) 0.5 %; Lymphocytes # (auto) 0.49 K/uL (1.2-3.4); Lymphocytes % (auto) 3.3 %; Monocytes # (auto) 0.44 K/uL (0.11-0.59); Neutrophils # (auto) 13.84 K/uL (1.40-6.50); Neutrophils % (auto) 92.8 %; Toxic Vacuolation 1+
[2022-07-16 15:33] LABS: Albumin Globulin Ratio 1.6 (0.9-2); Albumin Level 4.9 gm/dl (3.4-5.0); BUN Creatinine Ratio 24.4 (10-20); Bilirubin,Total 1.1 mg/dl (0.2-1.0); Calcium 9.6 mg/dl (8.5-10.1); Est GFR (African American) 83.3 ml/min; Est GFR (Non-African American) 71.9 ml/min; Globulin 3.1 gm/dl (2.5-4.0); Magnesium 1.8 mg/dl (1.7-2.4); Potassium 4.1 mmol/L (3.5-5.1)
[2022-07-16 15:38] LABS: Troponin I High Sensitivity 6.2 pg/ml (0-14)
[2022-07-16 16:11] LABS: Appearance Urine Clear (Clear); Bilirubin Urine Negative (Negative); Blood Urine Negative (Negative); Color Urine Yellow; Glucose Urine UA Negative (Negative); Ketones Urine Trace (Negative); Leukocyte Esterase Urine Negative (Negative); Nitrite Urine Negative (Negative); Protein Urine Negative (Negative); Specific Gravity Urine > 1.045 (1.000-1.030); Urobilinogen Urine Negative (Negative)
--- NOTE | 2022-07-16 16:31 | History & Physical Report ---
Date of Service July 16, 2022 Assessment & Plan (1) Transient global amnesia: Plan: Stroke alert called on admission -- had nausea/vomiting/diarrhea and went back to sleep, awoken several hours later confused. Recently started metformin in the past 10 days as well Neurology w/ stroke alert rec'd continued hydration, eval infectious causes, MRI brain Currently no focal weakness/deficit on exam but issues w/ memory Flu/RSV/COVID testing NEGATIVE. UA does not appear infected. UDS negative CT head/neck/angio unremarkable, does note L lobe thyroid nodule, nonemergent US rec in f/u CXR negative Obs medical w/ telemetry MRI brain for completeness ECHO given +murmur on exam (prior ECHO May 2019 --> LV size, function normal. EF 55-60%. Mild valvular aortic stenosis, mild tricuspid regurgitation) WBC elevated, but in setting of nausea/vomiting, suspect reactive but will check procal. Lactic pending as well. Holding off abx at this time, no clear source Check CT abdomen/pelvis to look for infectious causes Check stool PCR/cdiff given diarrhea IVF hydration Lipid/A1c in AM Dysphagia screening, then can advance diet to AHA/DM Neurochecks/NIHSS however no current focal deficits PT/OT/speech evals Repeat labs in AM (2) Confusion: Plan: likely related to illness as above -- viral vs bacterial flu/rsv/covid negative checking procal given leukocytosis, holding off on abx currently frequent orientation, neurochecks Check TSH given thyroid nodule, will need outpt f/u. also checking b12 for completeness alert/oriented to events UP UNTIL n/v overnight today -- see above (3) Leukocytosis: Plan: ?2nd to nausea/vomiting vs infection , bacterial vs viral flu/rsv/covid negative checking procal/blood cultures monitor CBC/fevers (4) Hypertension: Plan: Typically on lisinopril 10 mg daily, continued BP 131/81 (5) Prediabetes: Plan: on metformin 500mg daily at home hold home meds, suspect could have been contributing to nausea/vomiting/GI sx [employer]ING [employer] BSG AC/HS while inpatient Monitor BSGs (6) Dyslipidemia: Plan: hold crestor for now, check lipids in am/adjust if needed History of Present Illness Chief Complaint: nausea, vomiting, confusion Primary Care Provider: Anum Rees, DO 62yo female with PMHx significant for HTN, HLD, pre-DM presented with confusion/alered mental status. She was at home and sleeping, woke around 8am with vomiting and diarrhea and fell back asleep. Awoken around noon with confusion and brought to ER. Stroke alert was called -- imaging unrevealing. Per Neurology on stroke work-up, possible transient global amnesia from illness, recommended hydrating and obtain MRI brain and work-up infectious causes. Eval in C3 with at bedside. Alert/oriented to events UP UNTIL this morning. 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 Had been having some nausea/vomiting and several bouts of emesis. No etoh use but did have 1 sip of whiskey her son brought back from [place]. No smoking history. Did Cologuard for screening about 2 months ago. New med -- metformin from PCP about 7-10 days ago. Slight headache, improving since admission. Typically takes some ibuprofen 400-600mg as needed but not daily, depends on how long her work shifts are. Not currently having abdominal pain but discussed obtaining imaging for eval, as well as MRI of the head. She has +murmur on exam and states she thinks she has had an ECHO in the past. No syncopal symptoms reported however again, patient unaware of events of this morning, including texting her boss she would not be in as she was feeling ill. Hx abdominal surgery for endometriosis in the past. WBC elevated to 14.8k on admit, hgb 17.2. BUN/Cr 21/0.86, Glu 143. (prior A1c 6.4 last month). TB 1.1 but all other LFTs wnl. UA with trace ketone, no evidence for infection. UDS pending. COVID/Influenza/RSV testing negative. Was given 1L NSS, additional 1L NSS ordered. Zofran 4mg IV x 1 and tylenol IV. Allergies Allergy/AdvReac Type Severity Reaction Status Date / Time Penicillins Allergy Unknown CHILDHOOD Verified 07/16/22 15:04 ALLERGY--CAN'T REMEMBER Home Medications Medication Instructions Recorded Confirmed Type chromium aa vkbvwio-zvnhsjmze-eovi 1 tab PO DAILY 05/24/19 07/16/22 History 200 mcg-5 mg-25 mg tablet glucosamine sulf dipot 1 cap PO DAILY 05/24/19 07/16/22 History chlr,msm,chond 550 mg-C 30 mg-alfonso 1 mg capsule (Glucosamine Chondroitin) lactobacillus combination no.4 3 0 mmu cells PO DAILY 05/24/19 07/16/22 History billion cell capsule (Probiotic) multivitamin 1 tab PO DAILY 05/24/19 07/16/22 History omega 5-yei-yrx-fish oil 1,000 mg 1 cap PO DAILY 05/24/19 07/16/22 History (120 mg-180 mg) capsule (Fish Oil) cholecalciferol (vitamin D3) 10 1,000 units PO DAILY 05/26/19 07/16/22 History mcg (400 unit) tablet (Vitamin D3) potassium gluconate 595 mg (99 mg) 595 mg PO DAILY 05/26/19 07/16/22 History tablet psyllium husk 3.4 gram/5.4 gram 1 tbsp PO DAILY 05/05/20 07/16/22 History oral powder (Metamucil) sertraline 50 mg tablet 50 mg PO DAILY #90 tabs 08/29/21 07/16/22 Rx rosuvastatin 10 mg tablet 10 mg PO DAILY #90 tabs 12/14/21 07/16/22 Rx lisinopril 10 mg tablet 10 mg PO DAILY #90 tabs 06/13/22 07/16/22 Rx calcium carbonate 600 mg-vitamin 1 cap PO DAILY 07/16/22 07/16/22 History D3 10 mcg (400 unit) capsule coQ10 (ubiquinol) 200 mg capsule 200 mg PO DAILY 07/16/22 07/16/22 History metformin 500 mg tablet,extended 500 mg PO DAILY #90 tabs 07/16/22 Rx release 24 hr Past Med/Surg History Medical History Depression Dyslipidemia Hypertension Mild mitral regurgitation Echo 05/27/19 Mild tricuspid regurgitation Echo 05/27/19 Overweight Prediabetes Surgical History S/P laparoscopic procedure Family History Family/Other Breast cancer cousin Father Diabetes Mother Diabetes Hypertension Brother Diabetes Brother Diabetes Sister Breast cancer Prediabetes Denies family history of Ovarian cancer Prostate cancer Myocardial infarction Colorectal cancer Social History Smoking Status: Never smoker Second Hand Exposure: No; Hx Alcohol Use: No Hx Substance Use: No Preferred Language: Polish Communication Ability: Effective Visual Impairment: No Limitations Hearing Ability: Normal Community Theater Actor Required: No Beliefs That Will Affect Care: None marital status: Current Living Situation: Spouse current occupational status: employed 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 How many Children do You have: 3 Feels Safe at Home: Yes Safety Concerns: Feels Safe At This Time Childhood Exposure to Second-Hand Smoke: No Diet Comment: regular caffeine: Yes (Tea 1 cup per day.) during the past year weight has: remained stable Dental Care, Regularly: Yes Physical Activity Frequency: Daily Seatbelt Use: always Sunscreen Use: Yes (sometimes) Assistive Devices: Glasses Physical Exam Physical Exam: General: WN/WN female sitting up in bed, at bedside, NAD HEENT: head normocephalic, atraumatic, EOMI intact, no nystagmus, mm slightly dry Resp: CTAB, no w/c, on room air CV: regular rate/rhythm, +MURMUR, no pitting edema/calf tenderness, pulses palpable GI: +BS, slight distension, soft/NT : no hsieh MSK/Neuro/Psych: no focal deficit, no slurred speech alternating finger-finger intact, elias-heel testing without abnormality, no pronator drift, no slurred speech/facial droop +alert, oriented to person/place/year, events UP UNTIL THIS MORNING, however no recollection of events since awakening form her sleep Results & Data Results & Data ([facility]) Vital Signs (Past 12 Hours) Vital Signs Temp Pulse Resp BP Pulse Ox O2 Del Method 07/16/22 16:00 77 18 97 07/16/22 16:00 131/81 07/16/22 15:30 78 16 97 07/16/22 15:30 151/72 H 07/16/22 15:00 87 14 97 07/16/22 15:00 157/80 H 07/16/22 14:54 95 H 16 96 07/16/22 14:54 156/76 H 07/16/22 14:41 164/83 H 07/16/22 14:41 80 13 95 07/16/22 14:40 84 16 07/16/22 14:40 82 07/16/22 14:21 36.2 C L 93 H 20 175/84 H 97 Room Air Laboratory Results 07/16/22 07/16/22 07/16/22 Range/Units 15:50 15:50 15:42 WBC (4.8-10.8) K/ul RBC (4.20-5.40) M/uL Hgb (12.0-16.0) g/dl Hct (37.0-47.0) % MCV (80.0-100.0) fL MCH (25.0-34.0) pg MCHC (32.0-36.0) g/dL RDW Std Deviation (36.4-46.3) fL RDW Coeff of Rory (11.5-14.5) % Plt Count (130-400) K/uL MPV (9.4-12.4) fL Immature Gran % (Auto) % Neut % (Auto) % Lymph % (Auto) % Preston % (Auto) % Eos % (Auto) % Baso % (Auto) % Neut # (Auto) (1.40-6.50) K/uL Lymph # (Auto) (1.2-3.4) K/uL Preston # (Auto) (0.11-0.59) K/uL Eos # (Auto) (0-0.50) K/uL Baso # (Auto) (0-0.2) K/uL Immature Gran # (Auto) (0.01-0.20) K/uL Toxic Vacuolation PT (9.0-12.0) Seconds INR (0.9-1.1) APTT (21.0-31.0) Seconds PTT Ratio Sodium (136-145) mmol/L Potassium (3.5-5.1) mmol/L Chloride (98-107) mmol/L Carbon Dioxide (21-32) mmol/L Anion Gap (3-11) BUN (6-23) mg/dl Creatinine (0.6-1.2) mg/dl Est Cr Clr Drug Dosing ml/min Est GFR ( Amer) ml/min Est GFR (Non-Af Amer) ml/min BUN/Creatinine Ratio (10-20) Glucose (70-99(Fasting)) mg/dl POC Glucose (70-99) mg/dl Calcium (8.5-10.1) mg/dl Magnesium (1.7-2.4) mg/dl Total Bilirubin (0.2-1.0) mg/dl AST (13-39) U/L ALT (7-52) U/L Alkaline Phosphatase (34-104) U/L Troponin I High Sens (0-14) pg/ml Total Protein (6.0-8.3) gm/dl Albumin (3.4-5.0) gm/dl Globulin (2.5-4.0) gm/dl Albumin/Globulin Ratio (0.9-2) Urine Color Yellow Urine Appearance Clear (Clear) Urine pH 5.0 (4.5-7.5) Ur Specific [place] > 1.045 H (1.000-1.030) Urine Protein Negative (Negative) Urine Glucose (UA) Negative (Negative) Urine Ketones Trace H (Negative) Urine Blood Negative (Negative) Urine Nitrite Negative (Negative) Urine Bilirubin Negative (Negative) Urine Urobilinogen Negative (Negative) Ur Leukocyte Esterase Negative (Negative) Urine Opiates Screen Pending Ur Methadone, Qual Pending Urine Barbiturates Pending Ur Phencyclidine (PCP) Pending U Amphetamin/Meth Scrn Pending MDMA (Ecstasy) Screen Pending U Benzodiazepines Scrn Pending Ur Cocaine Metabolite Pending U Marijuana (THC) Screen Pending SARS-CoV-2 (PCR) Pending Influenza Type A (PCR) Pending Influenza Type B (PCR) Pending RSV (RT-PCR) Pending 07/16/22 07/16/22 07/16/22 Range/Units 14:38 14:38 14:38 WBC 14.89 H (4.8-10.8) K/ul RBC 5.60 H (4.20-5.40) M/uL Hgb 17.2 H (12.0-16.0) g/dl Hct 51.6 H (37.0-47.0) % MCV 92.1 (80.0-100.0) fL MCH 30.7 (25.0-34.0) pg MCHC 33.3 (32.0-36.0) g/dL RDW Std Deviation 44.9 (36.4-46.3) fL RDW Coeff of Rory 13.2 (11.5-14.5) % Plt Count 232 (130-400) K/uL MPV 11.4 (9.4-12.4) fL Immature Gran % (Auto) 0.5 % Neut % (Auto) 92.8 % Lymph % (Auto) 3.3 % Preston % (Auto) 3.0 % Eos % (Auto) 0.1 % Baso % (Auto) 0.3 % Neut # (Auto) 13.84 H (1.40-6.50) K/uL Lymph # (Auto) 0.49 L (1.2-3.4) K/uL Preston # (Auto) 0.44 (0.11-0.59) K/uL Eos # (Auto) 0.01 (0-0.50) K/uL Baso # (Auto) 0.04 (0-0.2) K/uL Immature Gran # (Auto) 0.07 (0.01-0.20) K/uL Toxic Vacuolation 1+ PT 10.5 (9.0-12.0) Seconds INR 1.0 (0.9-1.1) APTT 22.8 (21.0-31.0) Seconds PTT Ratio 0.8 Sodium 142 (136-145) mmol/L Potassium 4.1 (3.5-5.1) mmol/L Chloride 108 H (98-107) mmol/L Carbon Dioxide 26 (21-32) mmol/L Anion Gap 8 (3-11) BUN 21 (6-23) mg/dl Creatinine 0.86 (0.6-1.2) mg/dl Est Cr Clr Drug Dosing 69.0 ml/min Est GFR ( Amer) 83.3 ml/min Est GFR (Non-Af Amer) 71.9 ml/min BUN/Creatinine Ratio 24.4 H (10-20) Glucose 143 H (70-99(Fasting)) mg/dl POC Glucose (70-99) mg/dl Calcium 9.6 (8.5-10.1) mg/dl Magnesium 1.8 (1.7-2.4) mg/dl Total Bilirubin 1.1 H (0.2-1.0) mg/dl AST 22 (13-39) U/L ALT 31 (7-52) U/L Alkaline Phosphatase 87 (34-104) U/L Troponin I High Sens 6.2 (0-14) pg/ml Total Protein 8.0 (6.0-8.3) gm/dl Albumin 4.9 (3.4-5.0) gm/dl Globulin 3.1 (2.5-4.0) gm/dl Albumin/Globulin Ratio 1.6 (0.9-2) Urine Color Urine Appearance (Clear) Urine pH (4.5-7.5) Ur Specific [place] (1.000-1.030) Urine Protein (Negative) Urine Glucose (UA) (Negative) Urine Ketones (Negative) Urine Blood (Negative) Urine Nitrite (Negative) Urine Bilirubin (Negative) Urine Urobilinogen (Negative) Ur Leukocyte Esterase (Negative) Urine Opiates Screen Ur Methadone, Qual Urine Barbiturates Ur Phencyclidine (PCP) U Amphetamin/Meth Scrn MDMA (Ecstasy) Screen U Benzodiazepines Scrn Ur Cocaine Metabolite U Marijuana (THC) Screen SARS-CoV-2 (PCR) Influenza Type A (PCR) Influenza Type B (PCR) RSV (RT-PCR) 07/16/22 Range/Units 14:26 WBC (4.8-10.8) K/ul RBC (4.20-5.40) M/uL Hgb (12.0-16.0) g/dl Hct (37.0-47.0) % MCV (80.0-100.0) fL MCH (25.0-34.0) pg MCHC (32.0-36.0) g/dL RDW Std Deviation (36.4-46.3) fL RDW Coeff of Rory (11.5-14.5) % Plt Count (130-400) K/uL MPV (9.4-12.4) fL Immature Gran % (Auto) % Neut % (Auto) % Lymph % (Auto) % Preston % (Auto) % Eos % (Auto) % Baso % (Auto) % Neut # (Auto) (1.40-6.50) K/uL Lymph # (Auto) (1.2-3.4) K/uL Preston # (Auto) (0.11-0.59) K/uL Eos # (Auto) (0-0.50) K/uL Baso # (Auto) (0-0.2) K/uL Immature Gran # (Auto) (0.01-0.20) K/uL Toxic Vacuolation PT (9.0-12.0) Seconds INR (0.9-1.1) APTT (21.0-31.0) Seconds PTT Ratio Sodium (136-145) mmol/L Potassium (3.5-5.1) mmol/L Chloride (98-107) mmol/L Carbon Dioxide (21-32) mmol/L Anion Gap (3-11) BUN (6-23) mg/dl Creatinine (0.6-1.2) mg/dl Est Cr Clr Drug Dosing ml/min Est GFR ( Amer) ml/min Est GFR (Non-Af Amer) ml/min BUN/Creatinine Ratio (10-20) Glucose (70-99(Fasting)) mg/dl POC Glucose 134 H (70-99) mg/dl Calcium (8.5-10.1) mg/dl Magnesium (1.7-2.4) mg/dl Total Bilirubin (0.2-1.0) mg/dl AST (13-39) U/L ALT (7-52) U/L Alkaline Phosphatase (34-104) U/L Troponin I High Sens (0-14) pg/ml Total Protein (6.0-8.3) gm/dl Albumin (3.4-5.0) gm/dl Globulin (2.5-4.0) gm/dl Albumin/Globulin Ratio (0.9-2) Urine Color Urine Appearance (Clear) Urine pH (4.5-7.5) Ur Specific [place] (1.000-1.030) Urine Protein (Negative) Urine Glucose (UA) (Negative) Urine Ketones (Negative) Urine Blood (Negative) Urine Nitrite (Negative) Urine Bilirubin (Negative) Urine Urobilinogen (Negative) Ur Leukocyte Esterase (Negative) Urine Opiates Screen Ur Methadone, Qual Urine Barbiturates Ur Phencyclidine (PCP) U Amphetamin/Meth Scrn MDMA (Ecstasy) Screen U Benzodiazepines Scrn Ur Cocaine Metabolite U Marijuana (THC) Screen SARS-CoV-2 (PCR) Influenza Type A (PCR) Influenza Type B (PCR) RSV (RT-PCR) Diagnostic Findings Head CT 07/16/22 14:[address] OF THE BRAIN; CT ANGIOGRAM OF THE BRAIN; CT ANGIOGRAM OF THE NECK CLINICAL HISTORY: Strokelike symptoms. Neurological deficit. COMPARISON STUDY: CT of the brain dated 05/24/2019. TECHNIQUE: Unenhanced axial CT scan of the brain is performed. Subsequently, following the IV administration of 108 of Optiray 320, CT angiogram of the head and neck was performed from the aortic arch to the vertex. Images are reviewed in the axial, sagittal, and coronal planes. 3-D MIPS images are created and assessed. IV contrast was administered without complication. All measurements were calculated based on NASCET criteria. A dose lowering technique was utilized adhering to the principles of ALARA. CT DOSE: 1045.39 mGy.cm FINDINGS: Brain parenchyma: The brain parenchyma is normal in appearance. There is no hemorrhage, mass effect, or evidence of acute territorial ischemia by CT criteria. There is no evidence of enhancing mass lesion on the angiogram phase images. The ventricles, sulci, and cisterns are normal in configuration. Oliveros-w george matter differentiation is preserved. No extra-axial fluid collection is seen. Thoracic aorta: Visualized portions of the thoracic aorta are normal in caliber. The aortic arch demonstrates bovine variant anatomy. Right carotid arterial system: The right common carotid artery is widely patent, as are the right internal and external carotid arteries. Left carotid arterial system: The left common carotid artery is widely patent, as are the left internal and external carotid arteries. Vertebral arteries: The vertebral arteries are widely patent bilaterally and codominant Subclavian arteries: Widely patent bilaterally. Intracranial vasculature: There is atherosclerotic calcification of the cavernous carotid arteries. The internal carotid arteries are patent at the skull base, as are the anterior and middle cerebral arteries bilaterally. The vertebrobasilar system and posterior cerebral arteries are widely patent. The vertebral arteries are codominant.. There is no aneurysm, high-grade stenosis, or focal vessel cut off seen throughout the intracranial circulation. Jugular veins: Patent bilaterally. Dural sinuses: Patent. Lung apices: Partially visualized upper lobe lung parenchyma appears clear. Soft tissues: The visualized pharyngeal soft tissues are normal in appearance noting angiographic phase technique. The oropharyngeal airway appears widely patent. A 1.6 cm enhancing nodule is seen in the left lobe of the thyroid. The salivary glands are normal in appearance. No cervical lymphadenopathy is seen. Skeletal structures: The skeletal structures are osteopenic. The calvarium appears intact. The cervical spine is maintained noting multilevel spondylosis. No lytic or blastic lesion is seen. Orbits: The bony orbits are intact. Orbital contents are normal as visualized. Sinuses and mastoids: The paranasal sinuses are clear. The mastoid air cells are well pneumatized. IMPRESSION: 1. There is no hemorrhage, mass effect, or evidence of acute territorial ischemia by CT criteria. 2. Unremarkable CT angiogram of the brain. 3. Unremarkable CT angiogram of the neck. 4. Left lobe thyroid nodule. Nonemergent thyroid ultrasound is recommended in follow-up. ACT 112: Negative or not required by law. Electronically signed by: Mando Braxton M.D. 07/16/2022 3:08 PM Head CTA 07/16/22 14:[address] OF THE BRAIN; CT ANGIOGRAM OF THE BRAIN; CT ANGIOGRAM OF THE NECK CLINICAL HISTORY: Strokelike symptoms. Neurological deficit. COMPARISON STUDY: CT of the brain dated 05/24/2019. TECHNIQUE: Unenhanced axial CT scan of the brain is performed. Subsequently, following the IV administration of 108 of Optiray 320, CT angiogram of the head and neck was performed from the aortic arch to the vertex. Images are reviewed in the axial, sagittal, and coronal planes. 3-D MIPS images are created and assessed. IV contrast was administered without complication. All measurements were calculated based on NASCET criteria. A dose lowering technique was utilized adhering to the principles of ALARA. CT DOSE: 1045.39 mGy.cm FINDINGS: Brain parenchyma: The brain parenchyma is normal in appearance. There is no hemorrhage, mass effect, or evidence of acute territorial ischemia by CT criteria. There is no evidence of enhancing mass lesion on the angiogram phase images. The ventricles, sulci, and cisterns are normal in configuration. Oliveros- white matter differentiation is preserved. No extra-axial fluid collection is seen. Thoracic aorta: Visualized portions of the thoracic aorta are normal in caliber. The aortic arch demonstrates bovine variant anatomy. Right carotid arterial system: The right common carotid artery is widely patent, as are the right internal and external carotid arteries. Left carotid arterial system: The left common carotid artery is widely patent, as are the left internal and external carotid arteries. Vertebral arteries: The vertebral arteries are widely patent bilaterally and codominant Subclavian arteries: Widely patent bilaterally. Intracranial vasculature: There is atherosclerotic calcification of the cavernous carotid arteries. The internal carotid arteries are patent at the skull base, as are the anterior and middle cerebral arteries bilaterally. The vertebrobasilar system and posterior cerebral arteries are widely patent. The vertebral arteries are codominant.. There is no aneurysm, high-grade stenosis, or focal vessel cut off seen throughout the intracranial circulation. Jugular veins: Patent bilaterally. Dural sinuses: Patent. Lung apices: Partially visualized upper lobe lung parenchyma appears clear. Soft tissues: The visualized pharyngeal soft tissues are normal in appearance noting angiographic phase technique. The oropharyngeal airway appears widely patent. A 1.6 cm enhancing nodule is seen in the left lobe of the thyroid. The salivary glands are normal in appearance. No cervical lymphadenopathy is seen. Skeletal structures: The skeletal structures are osteopenic. The calvarium appears intact. The cervical spine is maintained noting multilevel spondylosis. No lytic or blastic lesion is seen. Orbits: The bony orbits are intact. Orbital contents are normal as visualized. Sinuses and mastoids: The paranasal sinuses are clear. The mastoid air cells are well pneumatized. IMPRESSION: 1. There is no hemorrhage, mass effect, or evidence of acute territorial ischemia by CT criteria. 2. Unremarkable CT angiogram of the brain. 3. Unremarkable CT angiogram of the neck. 4. Left lobe thyroid nodule. Nonemergent thyroid ultrasound is recommended in follow-up. ACT 112: Negative or not required by law. Electronically signed by: Mando Braxton M.D. 07/16/2022 3:08 PM Neck CTA 07/16/22 14:[address] OF THE BRAIN; CT ANGIOGRAM OF THE BRAIN; CT ANGIOGRAM OF THE NECK CLINICAL HISTORY: Strokelike symptoms. Neurological deficit. COMPARISON STUDY: CT of the brain dated 05/24/2019. TECHNIQUE: Unenhanced axial CT scan of the brain is performed. Subsequently, following the IV administration of 108 of Optiray 320, CT angiogram of the head and neck was performed from the aortic arch to the vertex. Images are reviewed in the axial, sagittal, and coronal planes. 3-D MIPS images are created and assessed. IV contrast was administered without complication. All measurements were calculated based on NASCET criteria. A dose lowering technique was utilized adhering to the principles of ALARA. CT DOSE: 1045.39 mGy.cm FINDINGS: Brain parenchyma: The brain parenchyma is normal in appearance. There is no hemorrhage, mass effect, or evidence of acute territorial ischemia by CT criteria. There is no evidence of enhancing mass lesion on the angiogram phase images. The ventricles, sulci, and cisterns are normal in configuration. Oliveros- white matter differentiation is preserved. No extra-axial fluid collection is seen. Thoracic aorta: Visualized portions of the thoracic aorta are normal in caliber. The aortic arch demonstrates bovine variant anatomy. Right carotid arterial system: The right common carotid artery is widely patent, as are the right internal and external carotid arteries. Left carotid arterial system: The left common carotid artery is widely patent, as are the left internal and external carotid arteries. Vertebral arteries: The vertebral arteries are widely patent bilaterally and codominant Subclavian arteries: Widely patent bilaterally. Intracranial vasculature: There is atherosclerotic calcification of the ca vernous carotid arteries. The internal carotid arteries are patent at the skull base, as are the anterior and middle cerebral arteries bilaterally. The vertebrobasilar system and posterior cerebral arteries are widely patent. The vertebral arteries are codominant.. There is no aneurysm, high-grade stenosis, or focal vessel cut off seen throughout the intracranial circulation. Jugular veins: Patent bilaterally. Dural sinuses: Patent. Lung apices: Partially visualized upper lobe lung parenchyma appears clear. Soft tissues: The visualized pharyngeal soft tissues are normal in appearance n oting angiographic phase technique. The oropharyngeal airway appears widely patent. A 1.6 cm enhancing nodule is seen in the left lobe of the thyroid. The salivary glands are normal in appearance. No cervical lymphadenopathy is seen. Skeletal structures: The skeletal structures are osteopenic. The calvarium appears intact. The cervical spine is maintained noting multilevel spondylosis. No lytic or blastic lesion is seen. Orbits: The bony orbits are intact. Orbital contents are normal as visualized. Sinuses and mastoids: The paranasal sinuses are clear. The mastoid air cells are well pneumatized. IMPRESSION: 1. There is no hemorrhage, mass effect, or evidence of acute territorial ischemia by CT criteria. 2. Unremarkable CT angiogram of the brain. 3. Unremarkable CT angiogram of the neck. 4. Left lobe thyroid nodule. Nonemergent thyroid ultrasound is recommended in follow-up. ACT 112: Negative or not required by law. Electronically signed by: Mando Braxton M.D. 07/16/2022 3:08 PM ECG Additional Comments: EKG NSR w/ nonspec ST, unchanged from prior 2019 Supervising Physician Co-Signing Physician Notes I personally saw and examined the patient. I verified all lama points and agree with Dedra Pedroza PA-C with the following exceptions and/or additions: 62 year old female presents to the ER with vomiting and diarrhea episode and inability to form memories following this. Her ability to form memories has improved throughout the day since admission when seen but she still doesn't remember events this morning. O/E HS RRR, systolic murmur LUSB, Chest CTAB, Abdo SNT, PERRL, no facial droop, CN2->12 intact, no pronator drift, All 4 extremity power grossly normal and sensation intact A/P Transient global amnesia - expect improvement back to baseline over the next 24 hours. Brain MRI to assess for acute ischemic stroke but this is much less likely. If negative brain MRI no need for neurology consult. Nausea, vomiting episode - appears to be a one off and not recurred. Will start with clear liquids and advance as tolerated. No need for CT given lack of abdominal pain or symptoms at the present time. ?metformin induced as I understand this was recently started. Will hold currently. PG Care Time/CCT Total # of Minutes Spent Total Time Spent with Patient: Total time spent is greater than 50% in coordination of care (as documented) at patient's floor/unit and/or counseling patient: Coding Level of Care Code 89155 INT INP/OBS CARE 3/75MIN Diagnoses Transient global amnesia G45.4 Confusion R41.0 Leukocytosis D72.829 Hypertension I10 Prediabetes R73.03 Dyslipidemia E78.5
[2022-07-16 16:36] LABS: Influenza A virus by PCR Negative (Neg); Influenza B virus by PCR Negative (Neg); RSV by PCR Negative (Neg); SARS CoV2 RNA(COVID-19) Ceph NEGATIVE (Negative)
--- NOTE | 2022-07-16 16:39 | XRay Report ---
XR chest 1V portable CLINICAL HISTORY: confusion ?PNA COMPARISON STUDY: Chest radiograph May 24, 2019. FINDINGS: Lung volumes are normal. Lungs are clear. There is no pneumothorax or pleural effusion. Car diac size is normal. Mediastinal contours are normal. There is no evidence for pulmonary edema. IMPRESSION: No acute cardiopulmonary findings. ACT 112: Negative or not required by law. Electronically signed by: Matt Hargrove M.D. 07/16/2022 4:38 PM
[2022-07-16 16:40] LABS: Amphetamines+Metham, Urine Neg (Neg); Barbiturates, Urine Neg (Neg); Benzodiazepine, Urine Neg (Neg); Cocaine, Urine Neg (Neg); MDMA (Ecstacy), Urine Neg (Neg); Methadone, Urine Neg (Neg); Opiate, Urine Neg (Neg); Phencyclidine, Urine Neg (Neg)
[2022-07-16] MEDS ORDERED: GLUCOSE 10 TAB/TUBE PO PRN (18:38)
[2022-07-16] MEDS ORDERED: GLUCOSE 40% GEL 15 GM TUBE PO PRN (18:38)
[2022-07-16] MEDS ORDERED: CARBOHYDRATES FOR HYPOGLYCEMIA PO PRN (18:38)
[2022-07-16] MEDS ORDERED: ONDANSETRON INJ 2 MG/ML 2 ML VIAL IV PRN (18:38)
[2022-07-16] MEDS ORDERED: GLUCAGON FOR INJ 1 MG VIAL SQ PRN (18:38)
[2022-07-16] MEDS ORDERED: DEXTROSE 50% 50 ML SYRINGE IV PRN (18:38)
[2022-07-16] MEDS: INSULIN ASPART PER UNIT SC SCH (21:06)
[2022-07-16] MEDS: ACETAMINOPHEN 325 MG TAB PO PRN (21:24)
[2022-07-16] MEDS: LACTATED RINGER'S 1,000 ML IV SCH (21:40)
[2022-07-17] MEDS: LACTATED RINGER'S 1,000 ML IV SCH (04:25)
[2022-07-17 06:33] LABS: Albumin Globulin Ratio 1.5 (0.9-2); Albumin Level 3.4 gm/dl (3.4-5.0); BUN Creatinine Ratio 19.3 (10-20); Bilirubin,Total 0.8 mg/dl (0.2-1.0); Calcium 8.1 mg/dl (8.5-10.1); Chol HDL Ratio 3.3 (0-5); Creatinine Clr Calc Pharmacy 69.2 ml/min; Globulin 2.2 gm/dl (2.5-4.0); Potassium 3.8 mmol/L (3.5-5.1); Total Protein 5.6 gm/dl (6.0-8.3)
[2022-07-17 06:56] LABS: Basophils # (auto) 0.03 K/uL (0-0.2); Basophils % (auto) 0.4 %; Eosinophils # (auto) 0.06 K/uL (0-0.50); Eosinophils % (auto) 0.9 %; Hematocrit (blood only) 38.3 % (37.0-47.0); Hemoglobin 12.8 g/dl (12.0-16.0); Immature Granulocytes # (auto) 0.02 K/uL (0.01-0.20); Immature Granulocytes % (auto) 0.3 %; Lymphocytes # (auto) 0.81 K/uL (1.2-3.4); Lymphocytes % (auto) 11.6 %; Mean Corpuscular Hemoglobin 30.4 pg (25.0-34.0); Mean Corpuscular Hgb Conc 33.4 g/dL (32.0-36.0); Mean Platelet Volume 11.6 fL (9.4-12.4); Monocytes # (auto) 0.67 K/uL (0.11-0.59); Monocytes % (auto) 9.6 %; Neutrophils % (auto) 77.2 %; Platelet Count 178 K/uL (130-400); RDW Coefficient of Variation 13.6 % (11.5-14.5); RDW Standard Deviation 45.5 fL (36.4-46.3); Red Blood Count 4.21 M/uL (4.20-5.40); White Blood Count 6.99 K/ul (4.8-10.8)
[2022-07-17 07:38] LABS: Estimated Average Glucose 126 mg/dl
[2022-07-17] MEDS: INSULIN ASPART PER UNIT SC SCH ×4 (07:43→20:40)
--- NOTE | 2022-07-17 07:54 | Magnetic Resonance Report ---
MR brain wo con CLINICAL HISTORY: confusion, eval CVA TECHNIQUE: Multiplanar and multisequence MR images of the brain were obtained without intravenous con trast. Comparison: None available at the time of this dictation. FINDINGS: No abnormal restricted diffusion is identified. The white matter is unremarkable. The ventricular sys tem is normal in appearance. No mass is seen. There is no mass effect or midline shift. There is no e vidence of acute intraparenchymal hemorrhage. No extra axial fluid collections are seen. The corpus c allosum, pituitary gland, and cerebellar tonsils appear grossly unremarkable. Flow voids of the major intracranial arterial vessels are identified. The imaged portions of the para nasal sinuses, mastoid air cells, and orbits are unremarkable. IMPRESSION: No acute abnormalities. ACT 112: Negative or not required by law. Electronically signed by: Jamie Shah M.D. 07/17/2022 7:53 AM
[2022-07-17] MEDS: ROSUVASTATIN CALCIUM 10 MG TAB PO SCH (08:24)
[2022-07-17] MEDS: SERTRALINE HCL 50 MG TABLET PO SCH (08:24)
[2022-07-17] MEDS: lisinopril 10 MG TAB PO SCH (08:24)
--- NOTE | 2022-07-17 13:00 | XCELERA ---
[id number]
--- NOTE | 2022-07-17 14:01 | Hospitalist Progress Note ---
Date of Service July 17, 2022 Assessment & Plan (1) Transient global amnesia: Plan: No focal weakness or numbness Memory affected Flu/RSV/COVID negative Urinalysis negative CT head/neck/angio negative MRI brain negative Echocardiogram unremarkable TGA seems to be the most likely diagnosis WBC elevated, but in setting of nausea/vomiting, suspect reactive but will check procal. Lactic pending as well. Holding off abx at this time, no clear source Check CT abdomen/pelvis to look for infectious causes Check stool PCR/cdiff given diarrhea IVF hydration Lipid/A1c in AM Dysphagia screening, then can advance diet to AHA/DM Neurochecks/NIHSS however no current focal deficits PT/OT/speech evals Repeat labs in AM Present on Admission?: Yes (2) Confusion: Plan: likely related to transient global amnesia versus viral gastroenteritis Improved Present on Admission?: Yes (3) Viral gastroenteritis: Plan: Presented with nausea/vomiting/diarrhea Nausea and vomiting resolved Diarrhea improving Checking stool PCR/C. difficile Associated with leukocytosis which has resolved Monitor clinically Discontinue IV fluids. Encourage p.o. 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 Denies chest pain or shortness of breath. Says that she had an episode of diarrhea this morning but it is improved in frequency, consistency. She did not have any nausea or vomiting today. She was able to tolerate her diet. Overall, she feels improved. She she still has no memory of the events yesterday. Review of Systems Review of Systems: All systems reviewed & are unremarkable except as noted in Subjective Physical Exam Physical Exam: General: Awake, conversant Heart: S1, S2/regular rate and rhythm, no murmur rubs or gallops Lungs: Clear to auscultation bilaterally. Normal effort Abdomen: Soft/nontender/nondistended. No hepatosplenomegaly Extremities: No clubbing/cyanosis. No edema Behavior: Appropriate, cooperative Results & Data Results & Data ([facility]) Vital Signs (Past 12 Hours) Vital Signs Temp Pulse Pulse Resp BP Pulse Ox O2 Del Method 07/17/22 12:00 36.8 C 74 20 121/63 97 Room Air 07/17/22 08:00 36.8 C 66 18 135/79 95 Room Air 07/17/22 08:00 67 07/17/22 04:00 36.8 C 65 16 114/68 95 Room Air Laboratory Results Abnormal lab results 07/16/22 07/16/22 07/16/22 Range/Units 14:26 14:38 14:38 WBC 14.89 H (4.8-10.8) K/ul RBC 5.60 H (4.20-5.40) M/uL Hgb 17.2 H (12.0-16.0) g/dl Hct 51.6 H (37.0-47.0) % Neut # (Auto) 13.84 H (1.40-6.50) K/uL Lymph # (Auto) 0.49 L (1.2-3.4) K/uL Bates # (Auto) (0.11-0.59) K/uL Chloride 108 H (98-107) mmol/L BUN/Creatinine Ratio 24.4 H (10-20) Glucose 143 H (70-99(Fasting)) mg/dl POC Glucose 134 H (70-99) mg/dl Hemoglobin A1c (4.5-5.6) % Calcium (8.5-10.1) mg/dl Total Bilirubin 1.1 H (0.2-1.0) mg/dl Total Protein (6.0-8.3) gm/dl Globulin (2.5-4.0) gm/dl Ur Specific [place] (1.000-1.030) Urine Ketones (Negative) 07/16/22 07/16/22 07/17/22 Range/Units 15:50 21:01 06:03 WBC (4.8-10.8) K/ul RBC (4.20-5.40) M/uL Hgb (12.0-16.0) g/dl Hct (37.0-47.0) % Neut # (Auto) (1.40-6.50) K/uL Lymph # (Auto) (1.2-3.4) K/uL Bates # (Auto) (0.11-0.59) K/uL Chloride (98-107) mmol/L BUN/Creatinine Ratio (10-20) Glucose (70-99(Fasting)) mg/dl POC Glucose 103 H (70-99) mg/dl Hemoglobin A1c 6.0 H (4.5-5.6) % Calcium (8.5-10.1) mg/dl Total Bilirubin (0.2-1.0) mg/dl Total Protein (6.0-8.3) gm/dl Globulin (2.5-4.0) gm/dl Ur Specific [place] > 1.045 H (1.000-1.030) Urine Ketones Trace H (Negative) 07/17/22 07/17/22 07/17/22 Range/Units 06:03 06:03 11:33 WBC (4.8-10.8) K/ul RBC (4.20-5.40) M/uL Hgb (12.0-16.0) g/dl Hct (37.0-47.0) % Neut # (Auto) (1.40-6.50) K/uL Lymph # (Auto) 0.81 L (1.2-3.4) K/uL Bates # (Auto) 0.67 H (0.11-0.59) K/uL Chloride 111 H (98-107) mmol/L BUN/Creatinine Ratio (10-20) Glucose 108 H (70-99(Fasting)) mg/dl POC Glucose 106 H (70-99) mg/dl Hemoglobin A1c (4.5-5.6) % Calcium 8.1 L (8.5-10.1) mg/dl Total Bilirubin (0.2-1.0) mg/dl Total Protein 5.6 L D (6.0-8.3) gm/dl Globulin 2.2 L (2.5-4.0) gm/dl Ur Specific [place] (1.000-1.030) Urine Ketones (Negative) PG Care Time/CCT Total # of Minutes Spent Total Time Spent: 35 Total Time Spent with Patient: I spent 35 minutes in the care of this patient. The time was spent in talking to the patient, nurse, care management team, reviewing the chart, forming plan and placing the orders accordingly. Coding Level of Care Code 21716 SUB INP/OBS CARE 2/35MIN Diagnoses Transient global amnesia G45.4 Confusion R41.0 Viral gastroenteritis A08.4 Leukocytosis D72.829 Hypertension I10 Prediabetes R73.03 Dyslipidemia E78.5 Left thyroid nodule E04.1 Time Spent (min) 35 Comment Time was spent in talking to the patient, nurse, palliative care physician, reviewing chart
[2022-07-17] MEDS: ACETAMINOPHEN 325 MG TAB PO PRN (19:24)
--- NOTE | 2022-07-17 22:43 | Electrocardiogram Report ---
Test Reason : Blood Pressure : / mmHG Vent. Rate : 083 BPM Atrial Rate : 083 BPM P-R Int : 132 ms QRS Dur : 080 ms QT Int : 362 ms P-R-T Axes : 043 019 011 degrees QTc Int : 425 ms Normal sinus rhythm Nonspecific ST abnormality Abnormal ECG When compared with ECG of 24-MAY-2019 08:45, No significant change was found Confirmed by Delvin Christian ([id number]) on 07/17/2022 10:43:21 PM Referred By: ED Confirmed By:Delvin Christian
[2022-07-17 23:21] LABS: Adenovirus F 40/41 PCR Not Detected (NotDetected); Astrovirus PCR Not Detected (NotDetected); Campylobacter PCR Not Detected (NotDetected); Cryptosporidium PCR Not Detected (NotDetected); Cyclospora cayetanensis PCR Not Detected (NotDetected); Entamoeba histolytica PCR Not Detected (NotDetected); Enteroaggregative E.coli(EAEC) Not Detected (NotDetected); Enteropathogenic E.coli (EPEC) Not Detected (NotDetected); Enterotoxigenic E.coli (ETEC) Not Detected (NotDetected); Giardia lamblia PCR Not Detected (NotDetected); Plesiomonas shigelloides PCR Not Detected (NotDetected); Rotavirus A PCR Not Detected (NotDetected); Salmonella PCR Not Detected (NotDetected); Sapovirus PCR Not Detected (NotDetected); Shiga-like Toxin E.coli (STEC) Not Detected (NotDetected); Shigella/Enteroinvasive E.coli Not Detected (NotDetected); Vibrio cholerae PCR Not Detected (NotDetected); Vibrio species PCR Not Detected (NotDetected); Yersinia enterocolitica PCR Not Detected (NotDetected)
[2022-07-17 23:26] LABS: Norovirus GI/GII PCR DETECTED (NotDetected)
[2022-07-18] MEDS: INSULIN ASPART PER UNIT SC SCH ×2 (07:32→11:29)
[2022-07-18] MEDS: SERTRALINE HCL 50 MG TABLET PO SCH (07:59)
[2022-07-18] MEDS: lisinopril 10 MG TAB PO SCH (07:59)
[2022-07-18] MEDS: ROSUVASTATIN CALCIUM 10 MG TAB PO SCH (07:59)
--- NOTE | 2022-07-18 11:04 | Discharge Summary ---
Date of Service July 18, 2022 Admission HPI Per Admitting Provider 62yo female with PMHx significant for HTN, HLD, pre-DM presented with confusion/alered mental status. She was at home and sleeping, woke around 8am with vomiting and diarrhea and fell back asleep. Awoken around noon with confusion and brought to ER. Stroke alert was called -- imaging unrevealing. Per Neurology on stroke work-up, possible transient global amnesia from illness, recommended hydrating and obtain MRI brain and work-up infectious causes. Eval in C3 with at bedside. Alert/oriented to events UP UNTIL this morning. 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 Had been having some nausea/vomiting and several bouts of emesis. No etoh use but did have 1 sip of whiskey her son brought back from [place]. No smoking history. Did Cologuard for screening about 2 months ago. New med -- metformin from PCP about 7-10 days ago. Slight headache, improving since admission. Typically takes some ibuprofen 400- 600mg as needed but not daily, depends on how long her work shifts are. Not currently having abdominal pain but discussed obtaining imaging for eval, as well as MRI of the head. She has +murmur on exam and states she thinks she has had an ECHO in the past. No syncopal symptoms reported however again, patient unaware of events of this morning, including texting her boss she would not be in as she was feeling ill. Hx abdominal surgery for endometriosis in the past. WBC elevated to 14.8k on admit, hgb 17.2. BUN/Cr 21/0.86, Glu 143. (prior A1c 6.4 last month). TB 1.1 but all other LFTs wnl. UA with trace ketone, no evidence for infection. UDS pending. COVID/Influenza/RSV testing negative. Was given 1L NSS, additional 1L NSS ordered. Zofran 4mg IV x 1 and tylenol IV. Admission Exam Per Admitting Provider General: WN/WN female sitting up in bed, at bedside, NAD HEENT: head normocephalic, atraumatic, EOMI intact, no nystagmus, mm slightly dry Resp: CTAB, no w/c, on room air CV: regular rate/rhythm, +MURMUR, no pitting edema/calf tenderness, pulses palpable GI: +BS, slight distension, soft/NT : no hsieh MSK/Neuro/Psych: no focal deficit, no slurred speech alternating finger-finger intact, elias-heel testing without abnormality, no pronator drift, no slurred speech/facial droop +alert, oriented to person/place/year, events UP UNTIL THIS MORNING, however no recollection of events since awakening form her sleep Principal Diagnosis Transient global amnesia, acute gastroenteritis due to norovirus Discharge Exam General: Awake, conversant Heart: S1, S2/regular rate and rhythm, no murmur rubs or gallops Lungs: Clear to auscultation bilaterally. Normal effort Abdomen: Soft/nontender/nondistended. No hepatosplenomegaly Extremities: No clubbing/cyanosis. No edema Behavior: Appropriate, cooperative Discharge Data Allergies Allergy/AdvReac Type Severity Reaction Status Date / Time Penicillins Allergy Unknown CHILDHOOD Verified 07/16/22 15:04 ALLERGY--CAN'T REMEMBER Consultations 07/16/22 16:14 ED Decision to Admit Stat Procedures Performed None Ordered Studies 07/16/22 14:41 CT angio head w con Stat CT angio neck with con Stat CT head/brain wo con Stat 07/16/22 18:38 MRI Brain [MR brain wo con] Routine Hospital Course (1) Transient global amnesia: No focal weakness or numbness Memory affected Flu/RSV/COVID negative Urinalysis negative CT head/neck/angio negative MRI brain negative Echocardiogram unremarkable TGA seems to be the most likely diagnosis (2) Confusion: likely related to transient global amnesia versus viral gastroenteritis Improved (3) Viral gastroenteritis: Secondary to norovirus Presented with nausea/vomiting/diarrhea Resolved symptoms Stool studies reviewed Associated with leukocytosis which has resolved Discontinue IV fluids. Encourage p.o. 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 That seems to be the main culprit reason for her nausea vomiting diarrhea. Metformin resumed (7) Dyslipidemia: Resume Crestor at the time of discharge (8) Left thyroid nodule: Incidentally found on CT angio of the neck Will need to be pursued outpatient Total Time Total Time Spent Total Time Spent (In Minutes): 35 Total Time Includes: Examination of the Patient, Discharge Planning and Medication Reconciliation Discharge Plan Discharge Items Patient Disposition: Home - Self-Care Reason For Visit: CONFUSION, N/V/DIARRHEA Discharge Diagnosis: Transient Global Amnesia, Acute Gastroenteritis due to NoroVirus, Incidental Thyroid Nodule Condition on Discharge: Fair Activity: Resume your previous activity Non-emergency contact: Primary Care Provider Call non-emergency contact if: your symptoms worsen Follow-up/Referrals: Izzy Davila PA-C [Physician Chain[employer]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] - 07/24/22 9:20 am Diet: Carb Consistent or DM2 and Heart Healthy Addtl Attending Provider Instructions: Advised to follow-up with PCP in 1 week Advised to talk to PCP about incidental finding of a thyroid nodule so it can be worked up further Pending Studies at Discharge: No Stand-Alone Forms: [facility] Medications and DC Order Prescriptions: Continued rosuvastatin 10 mg tablet 10 mg PO DAILY Qty: 90 3RF lisinopril 10 mg tablet 10 mg PO DAILY Qty: 90 1RF metformin 500 mg tablet extended release 24 hr 500 mg PO DAILY Qty: 90 1RF sertraline 50 mg tablet 50 mg PO DAILY Qty: 90 3RF Metamucil 3.4 gram/5.4 gram powder 1 tbsp PO DAILY Rx Instructions: mix into at least 8 oz of water or juice before administering multivitamin Tablet 1 tab PO DAILY omega 7-iih-vwm-fish oil [Fish Oil] 1,000 mg (120 mg-180 mg) Capsule 1 cap PO DAILY Patient Comments: unknown strength (05/24/19) chromium aa czy-ygeiqjyjk-epdb 200-5-25 mcg-mg-mg Tablet 1 tab PO DAILY Patient Comments: unknown strength (05/24/19) Probiotic 3 billion cell Capsule 0 mmu cells PO DAILY Patient Comments: unknown strength (05/24/19) Glucosamine Chondroitin 550-30-1 mg Capsule 1 cap PO DAILY Patient Comments: unknown strength (05/24/19) potassium gluconate 595 mg (99 mg) tablet 595 mg PO DAILY Patient Comments: unknown strength (05/24/19) cholecalciferol (vitamin D3) [Vitamin D3] 10 mcg (400 unit) tablet 1,000 units PO DAILY Patient Comments: unknown strength (05/24/19) calcium carbonate-vitamin D3 600 mg-10 mcg (400 unit) Capsule 1 cap PO DAILY coQ10 (ubiquinol) 200 mg Capsule 200 mg PO DAILY Discharge Orders: Discharge Order (Routine); Ordered 07/18/22 Ordered By: Racheal Wong/Other Patient Handouts: Prediabetes, 5 Steps for Eating Healthier Admission Data Admit Date/Time: 07/16/22 16:41 Attending Provider: Racheal Mosquera Admit Provider: Kenn Luque Primary Care Provider: Anum Rees Other Providers: Kenn Luque Other Interventions: Discharge Summary Assessment (RN) Last Done: 07/18/22 11:10 Coding Level of Care Code 97523 INP/OBS DISCH >30 MIN Diagnoses Transient global amnesia G45.4 Confusion R41.0 Viral gastroenteritis A08.4 Leukocytosis D72.829 Hypertension I10 Prediabetes R73.03 Dyslipidemia E78.5 Left thyroid nodule E04.1
== END 2022-07-18 13:07 | disposition home or self-care (01) ==
LOC: ED 14:14 → 2E 14:14 → SUATTDRO 16:41 → 2E 17:37